=== PATIENT | female | born 1980 | race Caucasian/White ===

== ENCOUNTER → 2020-02-15 11:23 | Outpatient (CLI) | payer OTHER, SELFPAY ==
[2020-02-15 12:54] LABS: Alanine Aminotransferase 26 IU/L (<35); Albumin 4.2 g/dL (3.5-5.0); Albumin Globulin Ratio 1.2 (1.0-2.8); Alkaline Phosphatase 65 U/L (38-126); Aspartate Aminotransferase 30 IU/L (14-36); BUN Creatinine Ratio 16.7 (6-22); Bilirubin Total 0.4 mg/dL (0.2-1.3); Blood Urea Nitrogen 13 mg/dL (7-17); Calcium 9.2 mg/dL (8.4-10.2); Carbon Dioxide 23 mmol/L (22-32); Chloride 107 mmol/L (98-107); Cholesterol 202 mg/dL (140-199); Estimated Glomerular Filt Rate > 60.0 mL/min (>60); Globulin 3.6 g/dL (1.7-4.1); Glucose 108 mg/dL (70-100); HDL Cholesterol 43 mg/dL (40-60); HEMOLYSIS < 15 (0-50); LDL Cholesterol Calculated 87 mg/dL (<100); Potassium 4.4 mmol/L (3.4-5.1); Sodium 136 mmol/L (137-145); Total Protein 7.8 g/dL (6.3-8.2); Triglycerides 359 mg/dL (35-150)
[2020-02-15 13:19] LABS: Thyroid Stimulating Hormone 2.03 uIU/mL (0.47-4.68)
== END ==
PROVIDERS: PCP Family Medicine; Referring Provider Family Medicine; Visit Provider Family Medicine
DX: Z13.1 Encounter for screening for diabetes mellitus (principal); Z13.21 Encounter for screening for nutritional disorder; Z13.220 Encounter for screening for lipoid disorders; Z13.29 Encounter for screening for other suspected endocrine disorder; F10.20 Alcohol dependence, uncomplicated; E66.9 Obesity, unspecified
CPT/HCPCS: 36415; 80053; 80061; 83036; 84443

== ENCOUNTER → 2021-12-16 09:24 | Outpatient (CLI) | payer OTHER, SELFPAY ==
[2021-12-16 11:11] LABS: Hemoglobin A1C% w Est Avg Glu 6.3 % (4.0-6.0)
[2021-12-16 11:17] LABS: Alanine Aminotransferase 19 IU/L (<35); Albumin 4.1 g/dL (3.5-5.0); Albumin Globulin Ratio 1.1 (1.0-2.8); Alkaline Phosphatase 62 U/L (38-126); Aspartate Aminotransferase 20 IU/L (14-36); BUN Creatinine Ratio 16.9 (6-22); Bilirubin Total 0.2 mg/dL (0.2-1.3); Blood Urea Nitrogen 12 mg/dL (7-17); Calcium 8.7 mg/dL (8.4-10.2); Carbon Dioxide 21 mmol/L (22-32); Chloride 107 mmol/L (98-107); Cholesterol 204 mg/dL (140-199); Estimated Glomerular Filt Rate > 60 mL/min (>60); Globulin 3.9 g/dL (1.7-4.1); Glucose 115 mg/dL (70-100); HDL Cholesterol 30 mg/dL (40-60); HEMOLYSIS < 15 (0-50); LDL Cholesterol Calculated 122 mg/dL (<100); Potassium 4.2 mmol/L (3.4-5.1); Sodium 138 mmol/L (137-145); Triglycerides 258 mg/dL (35-150)
== END ==
PROVIDERS: PCP Family Medicine; Referring Provider Family Medicine; Visit Provider Family Medicine
DX: E66.9 Obesity, unspecified (principal); R73.03 Prediabetes
CPT/HCPCS: 36415; 80053; 80061; 83036

== ENCOUNTER → 2021-12-30 09:52 | Outpatient (CLI) | payer OTHER, SELFPAY | PROVIDERS: PCP Family Medicine; Visit Provider Family Medicine | DX: R30.0 Dysuria (principal); R35.0 Frequency of micturition | CPT/HCPCS: 87086 ==

== ENCOUNTER 2022-11-11 10:06 | Day surgery (SDC) | payer OTHER, SELFPAY ==
[2022-11-01 12:20] VITALS: BMI 43.4
[2022-11-11] VITALS (8 sets, daily range): BP systolic 106–132; BP diastolic 67–87; PULSE 82–104; RESP 12–20; TEMP 36.2–36.6; O2SAT 97–99; BMI 43.4
--- NOTE | 2022-11-11 | PATH_ITS ---
[facility] Accession Number: [id number] No. of containers..01 Tissue . 01 Material submitted: . endometrium - ENDOMETRIAL CURETTINGS . 01 Diagnosis: Endometrium, Curettage: Secretory phase endometrium with focal changes suggestive of a polyp. Negative for neoplasia. MRV 11/23/2022 1724 Local . 01 Electronically signed: . Nell Dooley MD, Pathologist NPI- [id number] . 01 Gross description: . ENDOMETRIAL CURETTINGS: Received in formalin are minute fragments of mucoid and hemorrhagic material measuring 2.5 x 1.0 x 0.3 cm in aggregate. Submitted in toto in 1 cassette. /AAY 11/16/2022 0719 Local . 01 Pathologist provided ICD-10: N92.0 . 01 CPT . 406623 Specimen Comment: A courtesy copy of this report has been sent to [phone] Performed at: 01 [facility] [address] [place] [address] Suite [facility], [place], [place] [id number] MD Jitendra Hassan MD Phone: [phone]
[2022-11-11] MEDS: LACTATED RINGERS 1,000 ML 100 ML IV ×2 (11:11→11:54)
--- NOTE | 2022-11-11 11:16 | PM.GYNOP.1 ---
Operative Date/Time/Diagnoses Date of procedure: 11/11/22 Time of procedure: 11:56 Pre-op diagnosis: Menorrhagia Post-op diagnosis: same Procedure & Clinicians Procedure: Procedures Operation Date: 11/11/22 11:30 <No data on this case meets the specified criteria> Indications: Menorrhagia Surgeon: Marian Ervin Anesthesia Type: General (LMA) Operative Notes Findings: 7 week size anteverted uterus Both fallopian tube ostia observed Closure Type: not applicable Specimen(s): endometrial curettings Estimated blood loss (mL): 10 Blood products transfused: none Procedure in detail: After informed consent was obtained, the patient was taken to the operating room where she was placed in the dorsal supine position. After adequate LMA general anesthesia was achieved, she was placed in the dorsal lithotomy position, and prepped and draped in the usual sterile fashion. A time-out was performed. A bivalve speculum was placed into the vagina and the anterior lip of the cervix was grasped with a single-tooth tenaculum. The cervical os was sequentially dilated until the hysteroscope could pass easily into the endometrial cavity. Both fallopian tube ostia were observed. There were no polyps or fibroids. The hysteroscope was removed. Sharp curettage was performed yielding a large amount of endometrial curettings. The curette was removed from the uterus. The uterus was measured from the internal os to the fundus and measured 5.5 cm. The NovaSure catheter passed easily into the endometrial cavity and was opened. The width was 4.6 cm. This indicated a power of 139 w. These were set on the generator. The cervix was capped, the cavity assessment was performed and passed. The cycle was initiated and lasted 1 minute and 15 seconds. At the completion of the cycle the cervix was uncapped, the NovaSure catheter was closed and removed from the uterus. The single-tooth tenaculum was removed from the anterior lip of the cervix. The bivalve speculum was removed from the vagina. Sponge, lap, and instrument counts were correct x2. The patient tolerated the procedure well, and was taken to PACU in stable condition. Complications: none Post-operative Condition: stable Disposition: PACU Plan for aftercare: Home after recovery
--- NOTE | 2022-11-11 11:16 | PM.GYNHP.1 ---
History of Present Illness History of Present Illness Reason for admission: vaginal bleeding Narrative: Jadyn Torres is a 42 year old female 6 para 4 who presents for a D&C hysteroscopy with NovaSure endometrial ablation due to menorrhagia [facility] Medical History (Updated 08/24/22 @ 19:59 by Soco Zaldivar PA-C) Abnormal Pap smear of cervix Alcohol abuse (2006) Alcoholism (06/21/17) Depression (1998) HPV (human papilloma virus) infection Pre-diabetes Surgical History (Updated 09/13/17 @ 11:55 by Yanelis Amador) Anesthesia History of third molar tooth extraction Family History (Updated 09/13/17 @ 11:59 by Yanelis Amador) Father Heart disease Stroke Atrial fibrillation Sepsis Social History household members: spouse Smoking Status: Former smoker alcohol intake: current Meds Home Medications and Allergies Home Medications Medication Instructions Recorded Confirmed Type pyridoxine (vitamin B6) 25 mg ##0 06/21/17 09/15/22 History tablet vitamin B complex (B ##0 06/21/17 09/15/22 History Complex-Vitamin B12 tablet) alprazolam 1 mg tablet (Xanax) 1 mg PO Q6HP PRN anxiety #20 tabs 09/29/22 Rx topiramate 100 mg tablet 100 mg PO DAILY #90 tabs 10/21/22 Rx venlafaxine 100 mg tablet 100 mg PO BID #180 tabs 10/21/22 Rx Allergies Allergy/AdvReac Type Severity Reaction Status Date / Time bupropion [BUPROPION] Allergy Mild Verified 11/11/22 11:13 Exam Vital Signs (past 8 hours): - 11/11/22 11:04 Temperature 97.2 F L Pulse Rate 97 H Respiratory Rate 16 Blood Pressure 127/87 Oxygen Delivery Method Room Air Oxygen Delivery Method Room Air Narrative Exam Narrative: HEENT: No thyromegaly, no anterior cervical or supraclavicular lymphadenopathy. Lungs:Clear to auscultation bilaterally, no wheezes. Cardiovascular: Regular rate and rhythm, no murmurs, rubs, or gallops. Abdomen: No scars. No hepatosplenomegaly. No masses palpable. External genitalia: Normal Vagina: Normal Cervix: Normal Bimanual exam: 7 Week size uterus. Mobile. Extremities: No edema Assessment & Plan Assessment & Plan narrative: Assessment: 42-year-old 6 para 4 with menorrhagia Plan: D&C hysteroscopy with NovaSure endometrial ablation The risks, benefits, and alternatives to procedure were explained to the patient. The risks including bleeding, infection, uterine perforation. She understands these risks and agrees to proceed. A full par Q was held and consent form was signed. Time Spent With Patient Time with patient: less than 30 minutes
--- NOTE | 2022-11-11 11:18 | PM.PREOP ---
Pre-operative Note COVID-19 Criteria for continued procedure: Non-surgical alternatives not available or appropriate per current SOC Interval Note History & Physical reviewed/Exam performed by Physician: Yes Changes to H&P: No H&P completed within 30 days and has changed as indicated here:: 11/11/22
--- NOTE | 2022-11-11 11:46 | SUR.OPER ---
Lithotomy on padded OR bed, head on pillow, arms secured on padded arm boards at <90 degrees abduction. Legs secured in padded yellow fins stirrups.
[2022-11-11] MEDS: fentaNYL 100 MCG/2 ML INJ IV ×2 (12:33→12:38)
[2022-11-11] MEDS: OXYCODONE/ACETAMINOPHEN 5/325 TABLET 1 TAB PO ×2 (12:36→13:04)
[2022-11-11] MEDS: ONDANSETRON 4 MG/2 ML INJ IV (13:04)
== END 2022-11-11 13:13 | disposition home or self-care (01) ==
PROVIDERS: PCP Family Medicine; Referring Provider Obstetrics & Gynecology; Visit Provider Obstetrics & Gynecology
PROC: 0U5B8ZZ Destruction of Endometrium, Via Natural or Artificial Opening Endoscopic (ICD-10-PCS; CPT 58563; principal; 2022-11-11 11:30)
DX: N92.0 Excessive and frequent menstruation with regular cycle (principal)
CPT/HCPCS: 58563; J1100; J1885; J2405; J2704; J3010

== ENCOUNTER → 2023-10-11 09:47 | Outpatient (CLI) | payer OTHER, SELFPAY ==
[2023-10-11 11:25] LABS: Hemoglobin A1C% w Est Avg Glu 5.8 % (4.0-6.0)
[2023-10-11 11:34] LABS: Alanine Aminotransferase 22 IU/L (<35); Albumin 3.9 g/dL (3.5-5.0); Albumin Globulin Ratio 1.2 (1.0-2.8); Alkaline Phosphatase 63 U/L (38-126); Aspartate Aminotransferase 22 IU/L (14-36); BUN Creatinine Ratio 12.6 (6-22); Bilirubin Total 0.4 mg/dL (0.2-1.3); Blood Urea Nitrogen 12 mg/dL (7-17); Calcium 8.7 mg/dL (8.4-10.2); Carbon Dioxide 18 mmol/L (22-32); Chloride 113 mmol/L (98-107); Cholesterol 211 mg/dL (140-199); Estimated Glomerular Filt Rate > 60 mL/min (>60); Globulin 3.3 g/dL (1.7-4.1); Glucose 120 mg/dL (70-100); HDL Cholesterol 45 mg/dL (40-60); HEMOLYSIS < 15 (0-50); LDL Cholesterol Calculated 137 mg/dL (<100); Potassium 4.5 mmol/L (3.4-5.1); Sodium 140 mmol/L (137-145); Total Protein 7.2 g/dL (6.3-8.2); Triglycerides 144 mg/dL (35-150)
[2023-10-11 11:59] LABS: TSH w/ Reflex to FT4 1.08 uIU/mL (0.47-4.68)
== END ==
PROVIDERS: PCP Family Medicine; Referring Provider Family Medicine; Visit Provider Family Medicine
DX: E66.01 Morbid (severe) obesity due to excess calories (principal); Z68.41 Body mass index [BMI] 40.0-44.9, adult; R73.03 Prediabetes
CPT/HCPCS: 36415; 80053; 80061; 83036; 84443

== ENCOUNTER → 2024-04-16 16:57 | Outpatient (CLI) | payer OTHER, SELFPAY ==
--- NOTE | 2024-04-16 16:58 | DI.RAD.S_ITS ---
PROCEDURE: XR SHOULDER RT MIN 2V INDICATIONS: right shoulder pain TECHNIQUE: Three views of the shoulder were acquired. COMPARISON: None. FINDINGS: Bones: There are no osseous abnormalities. Acromioclavicular and glenohumeral joints: Normal in width and alignment without arthritic change Soft tissues: No soft tissue swelling, calcification or mass. IMPRESSION: Normal shoulder Dictated by: Sandeep Roberts M.D. on 04/17/2024 at 10:57 Approved by: Sandeep Roberts M.D. on 04/17/2024 at 10:58
== END ==
LOC: RAD 16:58
PROVIDERS: PCP Family Medicine; Referring Provider Family Medicine; Visit Provider Family Medicine
DX: M25.511 Pain in right shoulder (principal)
CPT/HCPCS: 73030

== ENCOUNTER 2024-12-25 09:36 | Day surgery (SDC) | payer OTHER, SELFPAY ==
--- NOTE | 2024-12-25 08:38 | PM.HP.IH.1 ---
History of Present Illness History of Present Illness Date Patient Seen: 12/25/24 Time Patient Seen: 08:39 Chief complaint: [facility] Narrative: Patient presents for screening colonoscopy, possible internal hemorrhoid banding. [facility] Medical History (Updated 12/05/24 @ 08:22 by Concetta Hubbard MD) Alcohol use disorder, severe, in sustained remission Adjustment disorder with anxiety MDD (major depressive disorder), recurrent episode, moderate Pre-diabetes HPV (human papilloma virus) infection Abnormal Pap smear of cervix Depression (1998) Alcohol abuse (2006) Alcoholism (06/21/17) Surgical History (Updated 09/13/17 @ 11:55 by Yanelis Amador) Anesthesia History of third molar tooth extraction Family History (Updated 09/13/17 @ 11:59 by Yanelis Amador) Father Heart disease Stroke Atrial fibrillation Sepsis Social History household members: spouse alcohol intake: current Meds Home Medications and Allergies Home Medications ?Medication ?Instructions ?Recorded ?Confirmed ?Type hydrocortisone acetate 25 mg 25 mg [place] DAILY #24 ea 09/27/24 10/29/24 Rx rectal suppository (Anusol-HC) topiramate 200 mg tablet 200 mg PO BID #180 tabs 10/01/24 10/29/24 Rx sodium,potassium,mag sulfates 17.5 See Rx Instructions PO .COMPLEX 11/15/24 Rx gram-3.13 gram-1.6 gram oral soln #354 mL (Suprep Bowel Prep Kit) aripiprazole 5 mg tablet 7.5 mg (1.5 x 5 mg) PO DAILY #45 11/23/24 12/07/24 Rx tabs venlafaxine 75 mg tablet See Rx Instructions PO BID #270 11/23/24 12/07/24 Rx tabs estradiol 0.025 mg/24 hr 1 patch transdermal 2XW #8 ea 12/03/24 12/03/24 Rx semiweekly transdermal patch metformin 500 mg tablet 1,000 mg (2 x 500 mg) PO DAILY 12/03/24 12/03/24 Rx #180 tabs alprazolam 1 mg tablet (Xanax) 1 mg PO Q6HP PRN anxiety #30 tabs 12/05/24 12/07/24 Rx propranolol 10 mg tablet 10 mg PO TID PRN anxiety #90 tabs 12/07/24 12/07/24 Rx Allergies Allergy/AdvReac Type Severity Reaction Status Date / Time bupropion (BUPROPION) Allergy Mild Verified 10/29/24 15:08 Exam Narrative Exam Narrative: Const General: comfortable Orientation: alert and oriented x3 Resp Effort & Inspection: normal respiratory effort and able to speak in complete sentences Cardio Rate: regular rate GI Palpation: soft (NT) Extrem General: no pedal edema and no calf tenderness Assessment & Plan Assessment and plan (1) Hemorrhoids: Qualifiers: Hemorrhoid type: unspecified Qualified Code(s): K64.9 - Unspecified hemorrhoids Status: Acute Plan Colonoscopy, possible biopsy, possible banding internal hemorrhoids. The risks, benefits and options regarding the procedure were explained to the patient in detail. Risk discussion included but not limited to: bleeding, perforation, unable to reach cecum, missed lesion, recurrent hemorrhoids, pelvic sepsis, urinary retention.? The patient was encouraged to ask questions and they were answered to their satisfaction. The patient understands and is agreeable to proceed. Time-Based Coding :: [TOTAL MINUTES] spent with patient and on the chart (including review of chart, obtaining history, exam, reviewing outside data, placing orders, documenting exam and treatment plan, and counseling patient) on [DATE]. PROFEE Planning Consultant Document charge(s): Yes Charge Codes Inpatient/observation care including admit and discharge same day: [id number]
[2024-12-25 10:39] VITALS: BP 153/93; PULSE 94; RESP 16; TEMP 36.3; O2SAT 99
[2024-12-25] MEDS: LACTATED RINGERS 1,000 ML 42 ML IV (10:49)
--- NOTE | 2024-12-25 11:18 | P.OP.COLON_ITS ---
Operative Date/Time/Diagnoses Date of procedure: 12/25/24 Time of procedure: 11:49 Pre-op diagnosis: Screening, h/o internal hemorrhoids Post-op diagnosis: other (Prolapsing rectal mucosa, no internal hemorrhoids; otherwise normal colonoscopy) Procedure & Clinicians Study performed: Colonoscopy Same procedure(s) as scheduled: Yes Indications: 44yo F, screening colonoscopy, possible banding of internal hemorrhoids Surgeon: Larry Omalley Anesthesia Type: MAC +/- Procedure Notes SCOAP/Timeout: Performed Procedure in detail: Colonoscopy Patient placed in left lateral recumbent position. Time out was performed. Procedural sedation was administered by anesthesia. Examination began with a thorough inspection of the perianal area. There was no evidence of fissures, fistulae, external hemorrhoids or cutaneous malignancy. The colonoscope was then placed into the rectum and the lumen was insufflated with carbon dioxide. The scope was carefully advanced forward. Ultimately the cecum was intubated and confirmed by identification of the ileocecal valve, the appendiceal orifice and the confluence of the taenia. The scope was then slowly withdrawn examining the colon thoroughly in all directions. In the rectum, retroflexion of the scope was performed for inspection of the distal rectum and anal canal. ?Significant colonoscopy findings: ?1. Quality of the preparation-good, [place] 2-3, improved with irrigation/suction ?2. Normal colonoscopy, no polyps, masses or strictures 3. No internal hemorrhoids seen, sphincter is loose, rectal mucosa easily prolapses, likely the source of her symptoms, recommend colorectal surgery evaluation for further evaluation Scope withdrawal time: 7 Findings: other findings (rectal mucosa prolapse) Specimen(s): none sent Complications: none Impression: Rectal mucosal prolapse Recommend colorectal surgery evaluation No internal hemorrhoids seen Otherwise normal colonoscopy, plan next screening in 10 years Post-procedure Recommendations: Colonoscopy in 10 years Follow up: as needed Disposition: PACU
[2024-12-25 11:49] VITALS: BP 123/74; PULSE 97; RESP 19; TEMP 36.1; O2SAT 97
[2024-12-25 11:58] VITALS: BP 109/54; PULSE 101; RESP 24; TEMP 36.8; O2SAT 98
== END 2024-12-25 13:48 | disposition home or self-care (01) ==
PROVIDERS: PCP Family Medicine; Referring Provider Family Medicine; Visit Provider Surgery
PROC: 0DJD8ZZ Inspection of Lower Intestinal Tract, Via Natural or Artificial Opening Endoscopic (ICD-10-PCS; CPT 45378; principal; 2024-12-25 11:00)
DX: Z12.11 Encounter for screening for malignant neoplasm of colon (principal); Z87.19 Personal history of other diseases of the digestive system; K62.3 Rectal prolapse
CPT/HCPCS: 45378; 82962; J2405; J2704